=== PATIENT | male | born 1980 | race Caucasian/White ===

== ENCOUNTER 2018-07-02 13:05 | Emergency (ER) | payer OTHER ==
[2018-07-02 13:26] VITALS: BP 125/68
--- NOTE | 2018-07-02 14:23 | UC ---
Ear Complaint HPI - HPI Summary HPI Summary: Has had a mild cough for a few days and 2 days ago developed L ear pain. has one sick child at home. - History of Current Complaint Chief Complaint: UCEar Stated Complaint: R EAR COMPLAINT Time Seen by Provider: 07/02/18 13:44 Hx Obtained From: Patient Pain Intensity: 4 Pain Scale Used: 0-10 Numeric - Allergies/Home Medications Allergies/Adverse Reactions: Allergies Allergy/AdvReac Type Severity Reaction Status Date / Time No Known Allergies Allergy Verified 07/02/18 13:26 Home Medications: Home Medications Ibuprofen TAB* [Advil TAB*] 400 mg PO Q6H PRN 07/02/18 [History Confirmed ] Multivitamins/Minerals TAB* [Theragran/minerals TAB*] 1 tab PO DAILY 07/02/18 [ History Confirmed 07/02/18] PMH/Surg Hx/FS Hx/Imm Hx Previously Healthy: Yes - Surgical History Surgical History: None - Social History Alcohol Use: Occasionally Substance Use Type: None Smoking Status (MU): Never Smoked Tobacco Review of Systems All Other Systems Reviewed And Are Negative: Yes Constitutional: Positive: Negative. Negative: Fever Skin: Positive: Negative ENT: Positive: Ear Ache, Sinus Congestion. Negative: Dental Pain, Sore Throat, Nasal Discharge, Sinus Pain/Tenderness Respiratory: Positive: Cough Cardiovascular: Positive: Negative Gastrointestinal: Negative: Vomiting, Diarrhea Physical Exam Triage Information Reviewed: Yes Appearance: Well-Appearing Vital Signs: Initial Vital Signs Temp 99.6 F 07/02/18 13:22 Pulse 82 07/02/18 13:22 Resp 14 07/02/18 13:22 BP 125/68 07/02/18 13:22 Pulse Ox 97 07/02/18 13:22 Vital Signs Reviewed: Yes ENT: Positive: Pharynx normal, Nasal congestion, TM bulging - left, TM dull - L TM Respiratory Exam: Normal Cardiovascular Exam: Normal Ear Complaint Course/Dx - Course Course Of Treatment: L ear pain w/ mild URI. Do not think this is bacterial source but TM on L side did look slightly dull and bulging. I discussed the liklihood of this being viral but he took the option of getting antibiotic. He would like to take antibx if there is no improvement or worsening pain over the next few days. He has remained afebrile and vitals good. - Differential Dx/Diagnosis Differential Diagnosis/HQI/PQRI: Otitis Externa, Otitis Media, URI Provider Diagnosis: Middle ear effusion Discharge - Sign-Out/Discharge Documenting (check all that apply): Patient Departure All imaging exams completed and their final reports reviewed: No Studies - Discharge Plan Condition: Good Disposition: HOME Prescriptions: Amoxicillin/Clavulanate TAB* [Augmentin TAB 875*] 875 mg PO BID 5 Days #10 tab Patient Education Materials: Ear Infection (ED) Referrals: Melissa Pradhan MD [Primary Care Provider] - Additional Instructions: As discussed I do not think you have an ear infection but more of congestion in the eustachian tube. This can be caused by a viral illness or allergies. For now you may use any otc decongestant and if no improvement you may warp picker antibiotics at the pharmacy. Again, I do not think this is a bacterial source but if no improvement antibiotics may help. - Billing Disposition and Condition Condition: GOOD Disposition: Home
== END 2018-07-02 14:30 | disposition home or self-care (01) ==
LOC: UCEAST 13:05
DX: H74.8X2 Other specified disorders of left middle ear and mastoid (principal); R05 Cough
CPT/HCPCS: 99212; G0463